=== PATIENT | female | born 1970 | race Caucasian/White ===

== ENCOUNTER 2016-09-24 21:19 | Emergency (ER) | payer OTHER ==
[2016-09-24 21:56] VITALS: BP 142/88; PULSE 65; RESP 20; TEMP 97.8; O2SAT 99
[2016-09-24 22:29] LABS: RBC URINE 5 /hpf (0-3); URINE BILIRUBIN NEGATIVE (NEGATIVE); URINE BLOOD NEGATIVE (NEGATIVE); URINE COLOR Yellow (YELLOW); URINE GLUCOSE (UA) NORMAL (Normal); URINE KETONE NEGATIVE (NEGATIVE); URINE LEUKOCYTE ESTERASE 3+ Leu/uL (Negative); URINE PROTEIN NEGATIVE (NEGATIVE); URINE UROBILINOGEN NORMAL mg/dL (0.2-1.0); WBC URINE 57 /hpf (0-5)
--- NOTE | 2016-09-24 22:52 | C.PDOC ---
History Of Present Illness 46 yo female c/o itching and white discharge for 4 days. Notes tried OTC monistat without releif- last use today. Similar h/o in the past with symptoms resolved with Diflucan. Pt notes she recently traveled to and believed "its from the water." Denies concern for STD and does not want to be tested, notes recent testing preformed. (-) dysuria (-) urinary frequency (-) abdominal pain ( -) back pain (-) vaginal wounds (-) fevers. Time Seen by Provider: 09/24/16 21:57 Chief Complaint (Nursing): Female Genitourinary History Per: Patient History/Exam Limitations: no limitations Onset/Duration Of Symptoms: Days Current Symptoms Are (Timing): Still Present Past Medical History Vital Signs: Last Vital Signs Temp 97.8 F 09/24/16 21:52 Pulse 65 09/24/16 21:52 Resp 20 09/24/16 21:52 BP 142/88 09/24/16 21:52 Pulse Ox 99 09/24/16 22:52 - Medical History PMH: Bipolar Disorder Family History: States: Unknown Family Hx - Social History Hx Alcohol Use: No Hx Substance Use: No - Immunization History Hx Tetanus Toxoid Vaccination: No Hx Influenza Vaccination: No Hx Pneumococcal Vaccination: No Review Of Systems Except As Marked, All Systems Reviewed And Found Negative. Genitourinary: Positive for: Vaginal Discharge Physical Exam - Physical Exam Appears: Well, Non-toxic, No Acute Distress Skin: Normal Color, Warm, Dry Head: Atraumatic, Normacephalic Eye(s): bilateral: Normal Inspection, EOMI Nose: Normal Oral Mucosa: Moist Neck: Normal, Normal ROM, Supple Chest: Symmetrical Respiratory: No Accessory Muscle Use Gastrointestinal/Abdominal: Normal Exam, Soft, No Tenderness Back: Normal Inspection, No CVA Tenderness, No Vertebral Tenderness Pelvic: Normal External Exam, Vaginal Discharge ((+) white thick cottage chesse like discharge), No Cervical Motion Tenderness Extremity: Normal ROM Neurological/Psych: Oriented x3, Normal Speech ED Course And Treatment O2 Sat by Pulse Oximetry: 99 Progress Note: Instructed to follow up with [facility] in 1-2 days or return to ER if symptoms persist or worsen. Disposition - Disposition Disposition: HOME/ ROUTINE Disposition Time: 22:51 Condition: STABLE Additional Instructions: Follow up with your primary medical doctor or clinic in 2-5 days for further evaluation. Take medications as prescribed. Return to the emergency department at any time if symptoms persist or worsen. Prescriptions: Fluconazole [Diflucan] 150 mg PO DAILY #1 tab Nitrofurantoin Macrocrystals [Macrobid] 1 cap PO BID #14 cap Instructions: Vulvovaginal Candidiasis (ED) - Clinical Impression Clinical Impression: Vulvovaginal candidiasis, UTI (urinary tract infection)
== END 2016-09-24 22:57 | disposition home or self-care (01) ==
LOC: C.ER 21:19
DX: B37.3 Candidiasis of vulva and vagina (principal); N39.0 Urinary tract infection, site not specified